=== PATIENT | female | born 1935 | race African-American/Black ===

== ENCOUNTER 2024-03-22 10:18 | Inpatient (IN) | payer MEDICARE ==
[~2024-03-22] VITALS: Ht 157.5 cm; Wt 73.9 kg
[~2024-03-22 10:18] MED LIST: AMLO5TAB88 PO; BENA5TAB40 PO
[2024-03-22 11:16] LABS: BASOPHILS % 0.7 % (0.0-2.0); EOSINOPHILS % 2.2 % (0.0-5.0); HEMATOCRIT. 36.5 % (36.0-48.0); HEMOGLOBIN. 12.2 g/dL (12.0-16.0); LYMPHOCYTES % 13.3 % (20.0-50.0); MEAN CORPUSCULAR HEMOGLOBIN 29.5 pg (28.0-32.0); MEAN CORPUSCULAR HGB CONC 33.4 g/dL (31.0-37.0); MEAN CORPUSCULAR VOLUME 88.3 fL (81.0-99.0); MEAN PLATELET VOLUME 8.1 fl (7.4-10.4); MONOCYTES % 5.4 % (2.0-8.0); NEUTROPHILS % 78.4 % (40.0-76.0); PLATELET 267 x1000/uL (130-400); RED BLOOD CELL COUNT 4.13 mill/uL (4.2-5.4); WHITE BLOOD COUNT 6.3 x1000/uL (4.5-11.0)
[2024-03-22 11:20] LABS: CHLORIDE 109 mEq/L (98-107); POTASSIUM 3.5 mEq/L (3.5-5.1); SODIUM 141 mEq/L (136-145)
[2024-03-22 11:21] LABS: CALCIUM 8.9 mg/dL (8.7-10.4); CARBON DIOXIDE 24 mEq/L (21-32)
[2024-03-22 11:26] LABS: CREATININE 1.1 mg/dL (0.6-1.0); GLUCOSE 113 mg/dL (70-105); UREA NITROGEN BLOOD 14 mg/dL (9-23)
[2024-03-22 11:32] LABS: TROPONIN I HIGH SENSITIVITY 46 ng/L (3.0-34)
[2024-03-22] MEDS: ENOXAPARIN 60MG/0.6ML SYR SUBCUT ONE (12:32)
[2024-03-22 16:21] VITALS: BP 116/68; PULSE 84; RESP 18; TEMP 35.78064; O2SAT 99
[2024-03-22 16:22] VITALS: BP 116/68; PULSE 84; RESP 18; TEMP 35.8064
[2024-03-22 20:00] VITALS: BP 136/68; PULSE 67; RESP 18; TEMP 36.22512; O2SAT 98
[2024-03-23] VITALS: BP 140/77; PULSE 77; RESP 19; TEMP 36.28068; O2SAT 100
[2024-03-23 04:00] VITALS: BP 150/69; PULSE 72; RESP 20; TEMP 36.33624; O2SAT 98
[2024-03-23 06:59] LABS: CHLORIDE 104 mEq/L (98-107); POTASSIUM 3.5 mEq/L (3.5-5.1); SODIUM 139 mEq/L (136-145)
[2024-03-23 07:00] LABS: CARBON DIOXIDE 27 mEq/L (21-32)
[2024-03-23 07:01] LABS: CALCIUM 9.3 mg/dL (8.7-10.4)
[2024-03-23 07:05] LABS: CREATININE 0.9 mg/dL (0.6-1.0); GLUCOSE 93 mg/dL (70-105); TRIGLYCERIDE 94 mg/dL (0-150); UREA NITROGEN BLOOD 12 mg/dL (9-23)
[2024-03-23 07:06] LABS: LDL CHOLESTEROL 100 mg/dL (5-100)
[2024-03-23 07:07] LABS: ALANINE AMINOTRANSFERASE 8 IU/L (10-49); ALBUMIN 3.8 g/dL (3.2-4.8); ASPARTATE AMINOTRANSFERASE 22 IU/L (<34); CHOLESTEROL 170 mg/dL (<200); HDL CHOLESTEROL 49 mg/dL (>65)
[2024-03-23 07:08] LABS: BILIRUBIN TOTAL 0.6 mg/dL (0.1-1.0); PROTEIN TOTAL 6.4 g/dL (6.0-8.3); THYROID STIMULATING HORMONE 4.31 uIU/mL (0.55-4.78)
[2024-03-23 07:15] LABS: BASOPHILS % 0.6 % (0.0-2.0); EOSINOPHILS % 1.3 % (0.0-5.0); HEMATOCRIT. 37.9 % (36.0-48.0); HEMOGLOBIN. 12.5 g/dL (12.0-16.0); LYMPHOCYTES % 15.5 % (20.0-50.0); MEAN CORPUSCULAR HEMOGLOBIN 29.1 pg (28.0-32.0); MEAN CORPUSCULAR VOLUME 88.2 fL (81.0-99.0); MEAN PLATELET VOLUME 8.5 fl (7.4-10.4); NEUTROPHILS % 75.6 % (40.0-76.0); PLATELET 273 x1000/uL (130-400); RED BLOOD CELL COUNT 4.29 mill/uL (4.2-5.4); RED CELL DISTRIBUTION WIDTH 15.6 % (11.6-14.6); WHITE BLOOD COUNT 7.9 x1000/uL (4.5-11.0)
[2024-03-23 08:00] VITALS: BP 158/65; PULSE 65; RESP 18; TEMP 36.50292; O2SAT 99
[2024-03-23] MEDS: AMLODIPINE 5MG TABLET PO SCH (10:35)
[2024-03-23] MEDS: ENOXAPARIN 40MG/0.4ML SYR SUBCUT SCH (10:35)
[2024-03-23 12:00] VITALS: BP 121/67; PULSE 67; RESP 18; TEMP 36.50292; O2SAT 99
[2024-03-23] MEDS: POTASSIUM CHLORIDE 20MEQ TABLET SR PO NR (14:29)
[2024-03-23 16:00] VITALS: BP 146/69; PULSE 80; RESP 18; TEMP 36.3918; O2SAT 96
[2024-03-23 20:00] VITALS: BP 140/60; PULSE 66; RESP 19; TEMP 36.33624; O2SAT 95
[2024-03-23] MEDS: ATORVASTATIN CALCIUM 20MG TABLET PO SCH (21:44)
[2024-03-24] VITALS: BP 130/87; PULSE 78; RESP 18; TEMP 36.33624; O2SAT 93
[2024-03-24 04:00] VITALS: BP_SYST 146; BP_SYST 91; BP_DIAS 36; BP_DIAS 69; PULSE 81; RESP 18; TEMP 36.3918; O2SAT 96
[2024-03-24 06:01] LABS: POTASSIUM 3.5 mEq/L (3.5-5.1)
[2024-03-24 06:02] LABS: CALCIUM 9.7 mg/dL (8.7-10.4)
[2024-03-24 06:07] LABS: CREATININE 1.1 mg/dL (0.6-1.0)
[2024-03-24 06:40] LABS: BASOPHILS % 0.6 % (0.0-2.0); EOSINOPHILS % 0.7 % (0.0-5.0); HEMATOCRIT. 37.9 % (36.0-48.0); HEMOGLOBIN. 12.8 g/dL (12.0-16.0); LYMPHOCYTES % 11.8 % (20.0-50.0); MEAN CORPUSCULAR HEMOGLOBIN 29.7 pg (28.0-32.0); MEAN CORPUSCULAR HGB CONC 33.8 g/dL (31.0-37.0); MEAN CORPUSCULAR VOLUME 87.7 fL (81.0-99.0); MEAN PLATELET VOLUME 8.9 fl (7.4-10.4); MONOCYTES % 7.2 % (2.0-8.0); NEUTROPHILS % 79.7 % (40.0-76.0); PLATELET 297 x1000/uL (130-400); RED BLOOD CELL COUNT 4.33 mill/uL (4.2-5.4); RED CELL DISTRIBUTION WIDTH 15.5 % (11.6-14.6); WHITE BLOOD COUNT 8.6 x1000/uL (4.5-11.0)
[2024-03-24 08:00] VITALS: BP 150/72; PULSE 76; RESP 18; TEMP 36.3918; O2SAT 98
[2024-03-24] MEDS: ASPIRIN 81MG EC TABLET PO SCH (08:37)
[2024-03-24] MEDS: AMLODIPINE 5MG TABLET PO SCH (08:37)
[2024-03-24 12:00] VITALS: BP 124/54; PULSE 84; RESP 18; TEMP 36.50292; O2SAT 100
[2024-03-24 15:11] VITALS: BP 124/54; PULSE 84; TEMP 97.7; O2SAT 100
[2024-03-24 16:00] VITALS: BP 145/73; PULSE 100; RESP 18; TEMP 36.33624; O2SAT 98
== END 2024-03-24 19:20 | disposition home or self-care (01) | DRG 554 ==
LOC: ER 10:18 → 8WST 11:36 → EDBEDREQ 11:43 → EDBEDREQTM 11:43
PROVIDERS: ADMIT Internal Medicine Nephrology; ATTEND Internal Medicine Nephrology
DX: M17.11 Unilateral primary osteoarthritis, right knee (principal); I12.9 Hypertensive chronic kidney disease with stage 1 through stage 4 chronic kidney disease, or unspecified chronic kidney disease; E78.5 Hyperlipidemia, unspecified; E87.6 Hypokalemia; N18.31 Chronic kidney disease, stage 3a; H61.20 Impacted cerumen, unspecified ear; R55 Syncope and collapse; M70.71 Other bursitis of hip, right hip; Z91.041 Radiographic dye allergy status; Z88.8 Allergy status to other drugs, medicaments and biological substances
CPT/HCPCS: 36415; 71045; 73522; 73560; 80048; 80053; 80061; 83880; 84443; 84484; 85025; 93005; 93880; 93970; 99285; C1893; J1650